=== PATIENT | male | born 1995 | race Caucasian/White ===

== ENCOUNTER 2023-02-15 06:29 | Emergency (ER) | payer SELFPAY ==
[~2023-02-15] VITALS: Ht 177.8 cm; Wt 81.6 kg
[2023-02-15] MEDS ORDERED: SULF1TAB48 PO (07:16)
[2023-02-15] MEDS ORDERED: SULFAMETH/TRIMETH 800/160 MG 1 UDTAB TABLET ONE (07:22)
[2023-02-15 07:27] VITALS: BP 125/83; TEMP 98.1
[2023-02-15] MEDS ORDERED: SULFAMETH/TRIMETH 800/160 MG 1 UDTAB TABLET PO ONE (07:30)
== END 2023-02-15 07:28 | disposition home or self-care (01) ==
LOC: ER 06:44
DX: F22 Delusional disorders (principal); Z48.89 Encounter for other specified surgical aftercare; F17.200 Nicotine dependence, unspecified, uncomplicated; Z59.00 Homelessness unspecified